=== PATIENT | male | born 1950 | race Caucasian/White ===

== ENCOUNTER → 2016-11-21 | Outpatient (CLI) | payer OTHER ==
--- NOTE | 2016-11-21 12:32 | RAD ---
Abdominal ultrasound, 11/21/2016: History: Abdominal pain The gallbladder is within normal limits in size. There is no sonographic evidence of cholelithiasis. The gallbladder mckeon are not thickened. No bile duct dilatation is seen. The liver demonstrates increased echogenicity in a diffuse pattern, most commonly due to fatty change. No hepatic mass is seen. The spleen measures 11.6 cm in length. No renal abnormality is detected. The pancreas was largely obscured by overlying bowel. The aorta is of normal caliber. The visualized portions of the inferior vena cava are unremarkable. No free fluid is evident in the abdomen. IMPRESSION: 1. Increased hepatic echogenicity compatible with hepatic steatosis. 2. No acute abdominal abnormality is detected.
== END | disposition home or self-care (01) ==
LOC: US 07:34
PROVIDERS: ATTEND Family Medicine
DX: Z72.0 Tobacco use (principal); K76.0 Fatty (change of) liver, not elsewhere classified
CPT/HCPCS: 76700